=== PATIENT | male | born 1945 ===

== ENCOUNTER 2018-12-24 08:04 | Day surgery (SDC) | payer MEDICARE, OTHER ==
[~2018-12-24] VITALS: Ht 175.3 cm; Wt 98.5 kg
[~2018-12-24 08:04] MED LIST: Hydrochloroth12.5 MG PO; LOSARTAN POTAS100 MG PO; OMEG1CAP30 PO; Prednisone1 MG PO; TRAM50 PO; VITAMIN D32000 UNIT PO; VOLTAREN100 GM TOP; WARF6 PO; [UNRECOGNIZED DRUG - OTHER] PO
--- NOTE | 2018-12-24 09:27 | NUR ---
12/24/[address] NOTIFIED OF PT INR 1.5 THIS AM PER PT CHECK AT HOME. OK TO PROCEED.
== END 2018-12-24 10:24 | disposition home or self-care (01) ==
LOC: ORSCSDS 08:04
PROVIDERS: Surgery
PROC: 0DBM8ZX Excision of Descending Colon, Via Natural or Artificial Opening Endoscopic, Diagnostic (ICD-10-PCS; principal; 2018-12-24 09:30)
DX: Z12.11 Encounter for screening for malignant neoplasm of colon (principal); D12.4 Benign neoplasm of descending colon; I10 Essential (primary) hypertension; E78.5 Hyperlipidemia, unspecified; E66.9 Obesity, unspecified; Z68.31 Body mass index [BMI] 31.0-31.9, adult; Z79.01 Long term (current) use of anticoagulants; Z79.899 Other long term (current) drug therapy
CPT/HCPCS: 88305; J2704; J7120